=== PATIENT | male | born 1935 | race Caucasian/White ===

== ENCOUNTER 2024-08-06 22:01 | Emergency (ER) | payer MEDICARE ==
[~2024-08-06] VITALS: Ht 165.1 cm; Wt 83.9 kg
--- NOTE | 2024-08-06 22:08 | NUR ---
DENIES PAIN WITH PALPATION TO CLAVICLE
[2024-08-06] MEDS: NEOMY SULF/BACITRA/POLYMYXIN B 1 EACH PACKET TP ONE (22:40)
[2024-08-06] MEDS: acetaMINOPHEN 500 MG TABLET PO ONE (22:40)
--- NOTE | 2024-08-06 23:14 | NUR ---
ABRASIONS TO BILATERAL FOREARMS CLEANED WITH SKIN CLEANSER, BACITRACIN APPLIED, COVERED WITH NONADHERENT GAUZE AND KERLIX. PATIENT TOLERATED WELL
--- NOTE | 2024-08-06 23:34 | ERN ---
ED Note History of Present Illness Stated Complaint: FALL Chief Complaint: Mechanical Fall Time Seen by MD: 22:06 Time Seen by Midlevel: 22:06 Dictation: The Patient is an 88-year-old male with no significant past medical history who presents to the emergency department with complaints of right shoulder pain, right arm pain after a accidental trip and fall while at his house at around 9:00 p.m. patient reports that he was unpacking there was an object in the floor with caused him to trip and fall landing on his right shoulder. Patient denies any head trauma, denies any neck pain, denies any back or chest pain. Denies any abdominal pain. No other injuries reported. Patient did sustain a skin tear to his right forearm reports up-to-date with the his Tdap vaccine Allergies: Coded Allergies: No Known Allergies (Unverified Allergy, Unknown, 08/06/24) Past Medical History Past Medical History: Diabetes-Type II, High Cholesterol, Other Additional Past Medical Hx: THYROID, MULTIPLE SKIN CANCER SITES Surgical History: Cholecystectomy, Other Surgical History Other: BILATERAL KNEE,MULTIPLE SKIN CANCER SITES, BACK X 2 RN Note Reviewed/Agreed w/PFSH: Yes Review of System Dictation Constitutional: Negative for fever,chills, and weight loss Eyes: Negative for injury, pain,redness, and discharge ENT: Negative for injury,pain or swelling Cardiovascular: Negative for chest pain, palpitations, and edema Respiratory: Negative for shortness of breath, cough, and wheezing, Abdomen/GI: Negative for abdominal pain, nausea, vomiting, diarrhea, and constipation Back: Negative for injury and pain : Negative for injury, bleeding and discharge MS/Extremity: Positive for right shoulder pain, right arm pain, skin tear. Skin: Negative for rash, and discoloration Neuro: Negative for headache, weakness, numbness, tingling, and seizure Psych: Negative for suicide ideation, homicidal ideation, and hallucinations Initial Vital Sign VS Vital Signs Date Time Temp Pulse Resp B/P (MAP) Pulse Ox O2 Delivery O2 Flow Rate FiO2 08/06/24 22:02 98.4 69 20 138/65 97 Room Air Physical Exam Dictation Vital Signs reviewed General Appearance: Alert, oriented x 3, no acute distress, well developed, nourished. Head and Face: non-traumatic. Eyes: PERRL, pink conjunctivas, eyelid no trauma, anterior chamber with arcus senilis. Ears: Pinnas intact and no signs of trauma or erythema ear canals clear and no discharge TM no erythema Nose: No discharge, no bleeding. Oropharynx: Mouth normal, tongue pink. pharynx clear,no erythema, tonsils no exudates, no abscesses noted, mucous membrane moist Neck: Supple, non-tender, no thyromegaly, no masses, no JVD, no bruits Breast:Deferred Chest:No tenderness, no crepitus, no paradoxical movement, no retractions Lungs:Clear, well-ventilated, symmetric, no rales, no wheezing, no rhonchi, no stridor, good breath sounds bilaterally Heart: Regular rate, regular rhythm, no murmur, no gallops Vascular: no peripheral edema, radial pulses 3+ bilaterally Abdomen: Soft, positive bowel sounds, nondistended, no guarding, nontender, no rebound, no masses no hepatomegaly, no splenomegaly, no Bernard's sign, no hernias. Rectal: Deferred Genital: Deferred Neurological: Normal speech, motor function intact, sensory function intact Musculoskeletal: Neck nontender, , back nontender, full range of motion, limited rom to right arm, no deformities, Extremities: nontender, full range of motion Skin: Color pink, dry, no turgor, no rash, no lacerations, no abrasions, no contusions. small skin tear to right forearm, no active bleeding, 4cm in length. Lymphatic: Deferred Results (Laboratory/Radiology) Labs Reviewed?: Yes ED Course ED Course Orders Procedure Category Date Status Time Shoulder Comp 2+Vws Rt RAD 08/06/24 Taken 22:25 Humerus 2+Vws Rt RAD 08/06/24 Taken 22:25 Forearm 2vws Rt RAD 08/06/24 Taken 22:25 Acetaminophen 500mg PHA 08/06/24 Complete Tab (Tylenol 500mg T 22:30 Neomy PHA 08/06/24 Complete Sulf/Bacitra/Polymyxin 22:30 Current Medications Medications (Trade) Dose Ordered Sig/Sayda Route PRN Reason Start Time Stop Time Status Last Admin Dose Admin Acetaminophen (TYLenol 500MG TAB) 1,000 mg ONCE ONCE PO 08/06/24 22:30 08/06/24 22:31 DC 08/06/24 22:40 Neomycin/ Polymyxin/ Bacitracin (Triple Antibiotic Ointment) 1 appl ONCE ONCE TP 6/22/25 22:30 08/06/24 22:31 DC 08/06/24 22:40 Vital Signs Date Time Temp Pulse Resp B/P (MAP) Pulse Ox O2 Delivery O2 Flow Rate FiO2 08/06/24 22:02 98.4 69 20 138/65 97 Room Air Medical Decision Making MDM The Patient is an 88-year-old male with no significant past medical history who presents to the emergency department with complaints of right shoulder pain, right arm pain after a accidental trip and fall while at his house at around 9:00 p.m. patient reports that he was unpacking there was an object in the floor with caused him to trip and fall landing on his right shoulder. Patient denies any head trauma, denies any neck pain, denies any back or chest pain. Denies any abdominal pain. No other injuries reported. Patient did sustain a skin tear to his right forearm reports up-to-date with the his Tdap vaccine No obvious fractures or dislocations seen on xray. Patient with limited ROM to right shoulder otherwise neurovascular intact, good radial pulse. Small skin tear to right forearm. No need for repair. Wound was cleaned. Patient with no other obvious injuries. no hematomas to head, no neck pain. Patient will be discharge to follow up with ortho and PCP. Differential diagnosis: Right shoulder dislocation, shoulder sprain, forearm fracture, humerus fracture Need for hospitalization: Patient does not meet criteria for hospitalization. There are no social concerns with this patient. DX & DISP Disposition: Discharge Departure Impression: Primary Impression: Fall Additional Impressions: Rotator cuff injury, Skin tear Condition: Stable Additional Instructions: your Xray showed no fractures or dislocations. Your shoulder pain is related to a tear or pull of your shoulder tendons. Keep your wound clean and dry, you can add neosporin cream.Do not put your wound in any pools or contaminated water. if you develop redness, or fevers please visit your doctor because you might need antibiotics. Please follow up with the bone doctor (ortho) and your primary doctor, If anything worsens please return to ER. FOLLOW-UP WITH PRIMARY CARE PROVIDER IN 1 TO 2 DAYS. TAKE MEDICATIONS DIRECTED HERE IN THE EMERGENCY ROOM. OKAY TO CONTINUE HOME MEDICATIONS UNLESS OTHERWISE DISCUSSED DURING YOUR VISIT IN THE EMERGENCY ROOM TODAY. RETURN TO YOUR NEAREST EMERGENCY ROOM IF SYMPTOMS WORSEN OR IF THERE IS NO IMPROVEMENT. CALL 911 IF YOU NEED IMMEDIATE ASSISTANCE. TAKE TYLENOL [id number] NEEDED AND IF NO CONTRAINDICATIONS ARE PRESENT. INCREASE ORAL HYDRATION. A WOUND CULTURE OR URINE CULTURE WAS ORDERED HERE IN THE EMERGENCY ROOM DEPARTMENT PLEASE FOLLOW-UP WITH PRIMARY CARE PROVIDER AND ADVISE THEM TO GET REPEAT PORTS FROM OUR FACILITY. IF YOU HAD ANY WILLIAM WRAP/SPLINTS THAT WERE APPLIED HERE, PLEASE DO NOT REMOVE THEM UNTIL YOU SEE YOUR PRIMARY CARE OR SPECIALTY. Referrals: LUCY NGUYEN MD Time of Disposition: 23:28 I have reviewed the case, and I agree with, Diagnosis and Plan DEVANTE ABAD [facility] Aug 06, 2024 23:34
--- NOTE | 2024-08-06 23:49 | NUR ---
SLING APPLIED TO R ARM, PATIENT TOLERATED WELL
[2024-08-06 23:55] VITALS: BP 136/68; PULSE 70; RESP 18; TEMP 98.6; O2SAT 98
--- NOTE | 2024-08-07 09:28 | HMCIMG ---
FOREARM 2VWS RT HISTORY: Status post fall COMPARISON: None TECHNIQUE: 2 images of right forearm were obtained. FINDINGS: There is no acute displaced fracture or dislocation. Degenerative changes are seen. IMPRESSION: 1. Findings as described above.
--- NOTE | 2024-08-07 10:36 | HMCIMG ---
HUMERUS 2+VWS RT HISTORY: Status post fall COMPARISON: None TECHNIQUE: 2 images of right humerus were obtained. FINDINGS: There is no acute displaced fracture or dislocation. Degenerative changes are seen. IMPRESSION: 1. Findings as described above.
--- NOTE | 2024-08-07 10:37 | HMCIMG ---
SHOULDER COMP 2+VWS RT HISTORY: Status post fall COMPARISON: None TECHNIQUE: 2 images of right shoulder were obtained. FINDINGS: There is no acute displaced fracture or dislocation. Degenerative changes are seen. IMPRESSION: 1. Findings as described above.
== END 2024-08-06 23:55 | disposition home or self-care (01) ==
LOC: EDH 22:01
DX: S51.811A Laceration without foreign body of right forearm, initial encounter (principal); S46.001A Unspecified injury of muscle(s) and tendon(s) of the rotator cuff of right shoulder, initial encounter; E11.9 Type 2 diabetes mellitus without complications; E78.00 Pure hypercholesterolemia, unspecified; Z85.828 Personal history of other malignant neoplasm of skin; Z90.49 Acquired absence of other specified parts of digestive tract; Z98.890 Other specified postprocedural states; W01.0XXA Fall on same level from slipping, tripping and stumbling without subsequent striking against object, initial encounter; Y93.89 Activity, other specified; Y92.89 Other specified places as the place of occurrence of the external cause; Y99.8 Other external cause status
CPT/HCPCS: 73030; 73060; 73090; 99283